=== PATIENT | male | born 1960 | race Caucasian/White ===

== ENCOUNTER 2018-08-17 06:04 | Day surgery (SDC) | payer MEDICARE, BC ==
[2018-08-17] VITALS (7 sets, daily range): BP systolic 127–140; BP diastolic 63–75; PULSE 62–80; RESP 16–25; Ht 185.4 cm; Wt 100.0 kg
[~2018-08-17] VITALS: Ht 185.4 cm; Wt 100.0 kg
[2018-08-17] MEDS ORDERED: MTF1000T PO (07:16)
[2018-08-17] MEDS ORDERED: LANT3I SC (07:16)
[2018-08-17] MEDS ORDERED: ASPI-903 PO (07:16)
[2018-08-17] MEDS ORDERED: PROPOFOL 20 ML ONE (07:34)
[2018-08-17] MEDS ORDERED: CLINDAMYCIN 900 MG/D5W (PMX) 50 ML IVPB ONE (07:34)
[2018-08-17] MEDS ORDERED: LIDOCAINE 2% (SDV) 5 ML INJ ONE (07:34)
--- NOTE | 2018-08-17 07:34 | PREAC ---
Date/Time of Note Date/Time of Note DATE: 08/17/18 TIME: 07:32 Anesthesia Eval and Record Evaluation Time Pre-Procedure Interview DATE: 08/17/18 TIME: 07:32 Age 58 Sex male NPO: 8 hrs Preoperative diagnosis right 2nd hammertoe Planned procedure right 2nd hammertoe correction Past Medical History Past Medical History: Includes Endo: Diabetes Pulm: Smoking Hx (cigar, smoked yesterday ) Surgery & Anesthesia Issues No known issue Meds Anticoagulation: Yes (ASA 08/10/18) Beta Jose Martin within 24 hr: No Reason Beta Jose Martin not given: Pt. not on B-Jose Martin Reported Medications Insulin Glargine* (Lantus*) 100 Unit/Ml Soln, 40 UNIT SC QHS, #1 VIAL 08/17/18 Aspirin* (Aspirin* Chew) 81 Mg Tab.chew, 81 MG PO DAILY, TAB.CHEW 08/17/18 Metformin* (Glucophage*) 1,000 Mg Tablet, 1000 MG PO BID, #60 TAB 08/17/18 Meds reviewed: Yes Allergies Coded Allergies: Penicillins (Verified Allergy, Unknown, 08/17/18) Allergies Reviewed: Yes Labs/Studies Labs Reviewed: Reviewed by anesthesiologist test: N/A Studies: CXR Pre-procedure Exam Last vitals Vital Signs Date Temp Pulse Resp B/P (MAP) Pulse Ox O2 O2 Flow FiO2 Time Delivery Rate 08/17/18 97.7 64 18 136/75 100 07:05 (95) Airway: Adequate mouth opening, Adequate thyromental dist Mallampati: Mallampati II Teeth: Normal Lung: Normal Heart: Normal ASA Physical Status ASA physical status: 2 Emergency: None Planned Anesthetic General/MAC: LMA Planned Pain Management Parenteral pain med, Local by surgeon Pre-operative Attestations Prior to commencing anesthesia and surgery, the patient was re-evaluated, there was verification of: *The patient's identity *The results of appropriate recent lab work and preoperative vital signs *The above evaluation not changing prior to induction *Anesthetic plan, risk benefits, alternative and complications discussed with patient/family; questions answered; patient/family understands, accepts and wishes to proceed. BRAIN MATOS Aug 17, 2018 07:34
[2018-08-17] MEDS ORDERED: MIDAZOLAM 1 MG/ML 2 ML INJ ONE (07:35)
[2018-08-17] MEDS ORDERED: FENTAnyl 50 MCG/ML VIAL ONE (07:35)
[2018-08-17] MEDS ORDERED: POVIDONE IODINE 10% 28.4 GM OINT ONE (07:42)
[2018-08-17] MEDS ORDERED: BUPIVACAINE 0.5% (SDV) 30 ML INJ ONE (07:42)
[2018-08-17] MEDS ORDERED: LIDOCAINE 1% (MPF) 30 ML INJ ONE (07:42)
[2018-08-17] MEDS ORDERED: POLYMYXIN/BACITRACIN 1L IRRIG ONE (07:43)
--- NOTE | 2018-08-17 07:56 | HPN ---
Date/Time of Note Date/Time of Note DATE: 08/17/18 TIME: 07:51 Interval H&P Admission Note Pt. seen H&P reviewed: No system changes TAMMY WILLIS DPM Aug 17, 2018 07:56
[2018-08-17] MEDS ORDERED: FAMOTIDINE 20 MG INJ ONE (08:14)
[2018-08-17] MEDS ORDERED: METOCLOPRAMIDE 10 MG INJ ONE (08:14)
[2018-08-17] MEDS ORDERED: ONDANSETRON 4 MG INJ ONE (08:14)
[2018-08-17] MEDS ORDERED: KETOROLAC 30 MG INJ ONE (08:52)
[2018-08-17] MEDS ORDERED: GLYCOPYRROLATE 0.4 MG INJ ONE (08:59)
[2018-08-17] MEDS ORDERED: ONDANSETRON 4 MG INJ IV PRN (09:00)
[2018-08-17] MEDS ORDERED: HYDROmorphONE 1 MG/5 ML IV SYRINGE IV PRN ×3 (09:00)
[2018-08-17] MEDS ORDERED: ALBUTEROL 0.083% (NEB) 2.5 MG/3 ML AMP HHN PRN (09:00)
[2018-08-17] MEDS ORDERED: MEPERIDINE 25 MG INJ IV PRN (09:00)
[2018-08-17] MEDS ORDERED: MIDAZOLAM 1 MG/ML 2 ML INJ IV PRN (09:00)
[2018-08-17] MEDS ORDERED: OXYCODONE/ACETAMINOPHEN (5/325) TAB PO PRN ×2 (09:00)
[2018-08-17] MEDS ORDERED: LABETALOL HCL 20MG INJ IV PRN (09:00)
--- NOTE | 2018-08-17 09:26 | PAC ---
Date/Time of Note Date/Time of Note DATE: 08/17/18 TIME: 09:26 Post-Anesthesia Notes Post-Anesthesia Note Last documented vital signs Vital Signs Date Temp Pulse Resp B/P (MAP) Pulse Ox O2 O2 Flow FiO2 Time Delivery Rate 08/17/18 98.1 09:23 08/17/18 64 18 136/75 100 07:05 (95) Activity: WNL Respiratory function: WNL Cardiovascular function: WNL Mental status: Baseline Pain reasonably controlled: Yes Hydration appropriate: Yes Nausea/Vomiting absent: Yes BRAIN MATOS Aug 17, 2018 09:26
--- NOTE | 2018-08-17 09:28 | SIPON ---
Date/Time of Note Date/Time of Note DATE: 08/17/18 TIME: 09:23 Operative Report Preoperative Diagnosis Preoperative diagnosis hammertoe second right foot deformed second metatarsal phalangeal joint right foot Postoperative Diagnosis Same Operation/Procedure Performed Metatarsal left foot right foot and hammertoe correction second right foot and application of active shield Surgeon see signature line case management assistant None Anesthesia: general Estimated blood loss: minimal Transfusion Required none Specimen Bone Grafts/Implants Graft of active shield Complications none TAMMY WILLIS DPM Aug 17, 2018 09:28
--- NOTE | 2018-08-17 12:23 | PREOPHP ---
DATE OF ADMISSION: 08/17/2018 The patient is being admitted to the hospital for elective foot surgery, palliative treatment unsuccessful. Patient has been explained surgery complications and alternatives and elected to have elective foot surgery. The patient's problem is at the second digit and plantar to the second metatarsal. ALLERGIES: PATIENT IS ALLERGIC TO PENICILLIN. PHYSICAL EXAMINATION: The patient is taking diabetic medicine and also took some aspirin. REVIEW OF SYSTEMS: Heart, lung, liver, kidney, thyroid okay, diabetes. He is taking the medicine. See any other pertinent history by Dr. Mcdonnell and upper extremity physical exam. Lower extremity physical exam shows the DP and PT equal and reactive to light and accommodation. NEUROLOGICAL: Negative for pathology. DERMATOLOGIC:. Neurological shows and HD second and a ulceration second MP joint. The x-rays show a hammer toe second and deformed 2nd metatarsal FINAL DIAGNOSES: 1. Hammertoe second right foot, deformed second MP joint, right foot. Dictated By: TAMMY CONTRERAS/JACK Conf#: [id number] DID#: [id number] MTDD
--- NOTE | 2018-08-17 13:01 | OPR ---
DATE OF OPERATION: 08/17/2018 PREOPERATIVE DIAGNOSES: 1. Hammertoe, 2nd of the right foot. 2. Deformed 2nd metacarpophalangeal joint, right foot. POSTOPERATIVE DIAGNOSES: 1. Hammertoe, 2nd of the right foot. 2. Deformed 2nd metacarpophalangeal joint, right foot. PROCEDURES: Partial ostectomy, 2nd metatarsal of right foot, hammertoe correction, 2nd right foot and application of Actishield. SURGEON: Tammy Landeros DPM DESCRIPTION OF PROCEDURE: The patient was brought to the surgical suite, placed in the supine position. The patient has sterile prep and drape done. The patient is under general anesthesia. The patient had pneumatic cuff at midthigh and the patient has findings consistent with the pre and postoperative diagnoses. The first incision was the dorsal longitudinal incision over the 2nd metatarsophalangeal joint using sharp and blunt dissection, then incision was carried deep. The extensor apparatus was released and the head of the 2nd metatarsal was dissected and then resected at its surgical neck. The area was then cleansed and then Actishield was then put in to the dense space there and 3-0 Vicryl was used to close that. Next, attention was turned to the hammertoe. The incision was lengthened over the 2nd digit. Using sharp and blunt dissection, the incision was carried deep. The head of the proximal phalanx was freed of its attachment and resected at its surgical neck. The area was cleansed and the area was then coaptated using 3-0 Vicryl. All incisions were then coaptated using 5-0 Nylon and the area was then injected with 1% lidocaine. The area was then dressed using 0.5-inch Steri-Strips, Betadine ointment, 4 x 4 impregnated with Betadine solution and Uma with an outer layer of Coban made into a semi-compressive dressing. The patient tolerated the surgery well and was returned to recovery room in satisfactory condition. Dictated By: TAMMY CONTRERAS/JACK Conf#: [id number] DID#: [id number] MTDD
--- NOTE | 2018-08-17 14:12 | RADRPT ---
Vent Rate: 59 bpm RR Interval: 0 msec W[place] Interval: 160 msec QRS Duration: 106 msec QT Interval: 424 msec QTC Interval: 419 msec P-R-T [place]: 46 - 56 - 54 degrees Sinus bradycardia Otherwise normal ECG Electronically Signed By: Estuardo Marti
--- NOTE | 2018-08-21 10:27 | OPR ---
DATE OF OPERATION: 08/17/2018 CORRECTION: Metatarsophalangeal joint (on preoperative diagnoses and postoperative diagnoses). Dictated By: TAMMY CONTRERAS/JACK Conf#: [id number] DID#: [id number]
== END 2018-08-17 10:50 | disposition home or self-care (01) ==
LOC: SDS 06:04
PROVIDERS: ATTEND Podiatrist
DX: M20.41 Other hammer toe(s) (acquired), right foot (principal); Z87.891 Personal history of nicotine dependence; E11.51 Type 2 diabetes mellitus with diabetic peripheral angiopathy without gangrene; I10 Essential (primary) hypertension
CPT/HCPCS: 28285; 82962; 85610; 85730; 88304; 88311; 93005; J1885; J2250; J2405; J2765; J3010; L3260